=== PATIENT | female | born 1940 | race Caucasian/White ===

== ENCOUNTER 2024-08-29 12:35 | Outpatient (CLI) | payer OTHER, SELFPAY | END 2024-08-29 12:36 | disposition home or self-care (01) | LOC: WOUND 12:40 | PROVIDERS: Visit Provider Nurse Practitioner Family | DX: I87.312 Chronic venous hypertension (idiopathic) with ulcer of left lower extremity (principal); L97.222 Non-pressure chronic ulcer of left calf with fat layer exposed; S81.802A Unspecified open wound, left lower leg, initial encounter; W55.03XA Scratched by cat, initial encounter | CPT/HCPCS: 11042; 97602; G0463 ==

== ENCOUNTER 2024-09-05 12:51 | Outpatient (CLI) | payer OTHER, SELFPAY | END 2024-09-05 12:52 | disposition home or self-care (01) | LOC: WOUND 12:51 | PROVIDERS: Visit Provider Nurse Practitioner Family | DX: I87.312 Chronic venous hypertension (idiopathic) with ulcer of left lower extremity (principal); L97.228 Non-pressure chronic ulcer of left calf with other specified severity | CPT/HCPCS: 97597 ==

== ENCOUNTER 2024-09-12 12:47 | Outpatient (CLI) | payer OTHER, SELFPAY | END 2024-09-12 12:48 | disposition home or self-care (01) | LOC: WOUND 12:48 | PROVIDERS: Visit Provider Nurse Practitioner Family | DX: I87.312 Chronic venous hypertension (idiopathic) with ulcer of left lower extremity (principal); L97.228 Non-pressure chronic ulcer of left calf with other specified severity | CPT/HCPCS: 97597 ==

== ENCOUNTER 2024-09-19 12:41 | Outpatient (CLI) | payer OTHER, SELFPAY | END 2024-09-19 12:42 | disposition home or self-care (01) | LOC: WOUND 12:41 | PROVIDERS: Visit Provider Nurse Practitioner Family | DX: I87.312 Chronic venous hypertension (idiopathic) with ulcer of left lower extremity (principal); L97.228 Non-pressure chronic ulcer of left calf with other specified severity | CPT/HCPCS: 97597 ==

== ENCOUNTER 2024-09-26 12:44 | Outpatient (CLI) | payer OTHER, SELFPAY | END 2024-09-26 12:45 | disposition home or self-care (01) | LOC: WOUND 12:44 | PROVIDERS: Visit Provider Nurse Practitioner Family | DX: I87.312 Chronic venous hypertension (idiopathic) with ulcer of left lower extremity (principal); L97.228 Non-pressure chronic ulcer of left calf with other specified severity | CPT/HCPCS: 97597 ==

== ENCOUNTER 2024-10-17 12:49 | Outpatient (CLI) | payer OTHER, SELFPAY | END 2024-10-17 12:50 | disposition home or self-care (01) | LOC: WOUND 12:49 | PROVIDERS: Visit Provider Nurse Practitioner Family | DX: I87.312 Chronic venous hypertension (idiopathic) with ulcer of left lower extremity (principal); L97.222 Non-pressure chronic ulcer of left calf with fat layer exposed | CPT/HCPCS: 97597 ==

== ENCOUNTER 2024-10-24 10:26 | Outpatient (CLI) | payer OTHER, SELFPAY | END 2024-10-24 10:27 | disposition home or self-care (01) | LOC: WOUND 10:26 | PROVIDERS: Visit Provider Nurse Practitioner Family | DX: I87.312 Chronic venous hypertension (idiopathic) with ulcer of left lower extremity (principal); L97.228 Non-pressure chronic ulcer of left calf with other specified severity | CPT/HCPCS: 97597 ==

== ENCOUNTER 2024-11-07 12:42 | Outpatient (CLI) | payer OTHER, SELFPAY | END 2024-11-07 12:43 | disposition home or self-care (01) | LOC: WOUND 12:42 | PROVIDERS: Visit Provider Nurse Practitioner Family | DX: I87.312 Chronic venous hypertension (idiopathic) with ulcer of left lower extremity (principal); L97.222 Non-pressure chronic ulcer of left calf with fat layer exposed | CPT/HCPCS: 97597 ==

== ENCOUNTER 2024-11-21 12:32 | Outpatient (CLI) | payer OTHER, SELFPAY | END 2024-11-21 12:33 | disposition home or self-care (01) | LOC: WOUND 12:32 | PROVIDERS: Visit Provider Nurse Practitioner Family | DX: I87.312 Chronic venous hypertension (idiopathic) with ulcer of left lower extremity (principal); L97.222 Non-pressure chronic ulcer of left calf with fat layer exposed | CPT/HCPCS: 97597 ==

== ENCOUNTER 2024-12-05 12:41 | Outpatient (CLI) | payer OTHER, SELFPAY | END 2024-12-05 12:42 | disposition home or self-care (01) | LOC: WOUND 12:41 | PROVIDERS: Visit Provider Nurse Practitioner Family | DX: I87.312 Chronic venous hypertension (idiopathic) with ulcer of left lower extremity (principal); L97.222 Non-pressure chronic ulcer of left calf with fat layer exposed | CPT/HCPCS: 97597 ==

== ENCOUNTER 2024-12-12 12:50 | Outpatient (CLI) | payer OTHER, SELFPAY | END 2024-12-12 12:51 | disposition home or self-care (01) | LOC: WOUND 12:50 | PROVIDERS: Visit Provider Nurse Practitioner Family | DX: I87.312 Chronic venous hypertension (idiopathic) with ulcer of left lower extremity (principal); L97.222 Non-pressure chronic ulcer of left calf with fat layer exposed | CPT/HCPCS: 97597 ==

== ENCOUNTER 2024-12-19 12:49 | Outpatient (CLI) | payer OTHER, SELFPAY | END 2024-12-19 12:50 | disposition home or self-care (01) | LOC: WOUND 12:50 | PROVIDERS: Visit Provider Nurse Practitioner Family | DX: I87.312 Chronic venous hypertension (idiopathic) with ulcer of left lower extremity (principal); L97.222 Non-pressure chronic ulcer of left calf with fat layer exposed | CPT/HCPCS: 97597 ==

== ENCOUNTER 2024-12-26 12:39 | Outpatient (CLI) | payer OTHER, SELFPAY | END 2024-12-26 12:40 | disposition home or self-care (01) | LOC: WOUND 12:40 | PROVIDERS: Visit Provider Nurse Practitioner Family | DX: I87.312 Chronic venous hypertension (idiopathic) with ulcer of left lower extremity (principal); L97.222 Non-pressure chronic ulcer of left calf with fat layer exposed | CPT/HCPCS: 97597 ==

== ENCOUNTER 2025-01-09 10:13 | Outpatient (CLI) | payer OTHER, SELFPAY | END 2025-01-09 10:14 | disposition home or self-care (01) | PROVIDERS: Visit Provider Family Medicine | DX: I87.312 Chronic venous hypertension (idiopathic) with ulcer of left lower extremity (principal); L97.222 Non-pressure chronic ulcer of left calf with fat layer exposed | CPT/HCPCS: 11042 ==

== ENCOUNTER 2025-01-16 12:43 | Outpatient (CLI) | payer OTHER, SELFPAY | END 2025-01-16 12:44 | disposition home or self-care (01) | LOC: WOUND 12:43 | PROVIDERS: Visit Provider Nurse Practitioner Family | DX: I87.302 Chronic venous hypertension (idiopathic) without complications of left lower extremity (principal) | CPT/HCPCS: G0463 ==